=== PATIENT | female | born 1965 | race Caucasian/White ===

== ENCOUNTER 2018-09-21 14:50 | Emergency (ER) | payer BC ==
[2018-09-21] MEDS ORDERED: ASPIRIN 81 MG CHEWABLE TABLET PO ONE (14:56)
--- NOTE | 2018-09-21 14:57 | Emergency Department Record ---
History of Present Illness - General Chief Complaint: Chest Pain Stated Complaint: CHEST PAIN Time Seen by Provider: 09/21/18 14:53 Source: Patient, Family Mode of Arrival: Ambulatory Limitations: No limitations - History of Present Illness Initial Comments: 52 yo female presents with a pounding feeling in her chest with rapid heart rate over the last hour. [place] onset was [place]. She checked her HR and it was about 180. The rapid heart rate makes her feel short of breath. No CAD history. She has a history or asthma. Her asthma has been under control recently. She is a non smoker. No recent changes in her health. MD Complaint: Chest pain, Other (Rapid Heart rate) -: Hour(s) (1) Onset: Other Pain Location: Substernal Pain Radiation: RUE, LUE Severity: Moderate Quality: Heaviness Consistency: Constant Improves With: Nothing Worsens With: Nothing Context: Other Anginal Symptoms: Dyspnea Other Symptoms: Other Treatments Prior to Arrival: None - Related Data Home Medications Medication Instructions Recorded Confirmed Last Taken Albuterol Sulfate [Proair Hfa] 2 puff INH ASDIR 09/21/18 09/21/18 09/19/18 Allergies Allergy/AdvReac Type Severity Reaction Status Date / Time Penicillins Allergy PT UNSURE Verified 09/21/18 14:56 OF REACTION Review of Systems Constitutional: Denies: Chills, Fever, Weakness Eyes: Denies: Eye discharge ENT: Denies: Congestion, Throat pain Respiratory: Reports: Dyspnea, Wheezes (Hx of asthma). Denies: Cough, He moptysis, Stridor Cardiovascular: Reports: Chest pain (Pounding), Dyspnea on exertion, Palpitations. Denies: Edema, Syncope Endocrine: Denies: Fatigue, Polydipsia, Polyuria Gastrointestinal: Denies: Abdominal pain, Diarrhea, Nausea, Vomiting Genitourinary: Denies: Dysuria, Urgency Musculoskeletal: Denies: Arthralgia, Back pain, Myalgia Skin: Denies: Bruising, Change in color, Rash Neurological: Denies: Headache, Numbness, Weakness Psychiatric: Denies: Anxiety Hematological/Lymphatic: Denies: Easy bleeding, Easy bruising Physical Exam - General General Appearance: Alert, Oriented x3, Cooperative, No acute distress Limitations: No limitations - Head Head exam: Atraumatic, Normal inspection - Eye Eye exam: Normal appearance, PERRL. negative: Conjunctival injection, Scleral icterus - ENT ENT exam: Normal exam, Mucous membranes moist Ear exam: Normal external inspection Nasal Exam: Normal inspection Mouth exam: Normal external inspection - Neck Neck exam: Normal inspection - Respiratory Respiratory exam: Normal lung sounds bilaterally. negative: Accessory muscle use, Prolonged expiratory, Wheezes - Cardiovascular Cardiovascular Exam: Tachycardia. negative: Regular rate, Normal rhythm Peripheral Pulses: 2+: Radial (R), Radial (L) - GI/Abdominal GI/Abdominal exam: Soft. negative: Tenderness - Rectal Rectal exam: Deferred - exam: Deferred - Extremities Extremities exam: Normal inspection. negative: Pedal edema, Tenderness - Back Back exam: Denies: CVA tenderness (R), CVA tenderness (L) - Neurological Neurological exam: Alert, Oriented X3 - Psychiatric Psychiatric exam: Anxious - Skin Skin exam: Dry, Intact, Normal color, Warm Course - Reevaluation(s) Reevaluation #1: 09/21/18 14:57 EKG #1: 14:52 Rate: 176 Rhythm: SVT [place]: R Intervals: Qtc 488 ST segments: ST depression, probably rate related Prior: None 09/21/18 15:00 09/21/18 15:04 I had the patient perform a vagal maneuver She successfully converted the SVT to a NSR Repeat EKG ordered 09/21/18 15:05 EKG #2: 15:02 Rate: 74 Rhythm: sinus [place]: rightward Intervals: normal ST segments: normal Prior: #1 09/21/18 15:35 Patient remains NSR. 09/21/18 16:28 The labs were reviewed No acute changes on the CBC or CMP The Troponin is normal The patient remains in NSR. She does states that she is having chest tightness that comes and goes still. I recommend admission if that is the case. She is from [place] and requests transfer to [place] (37 miles) 09/21/18 16:35 PCP is at [facility] 09/21/18 16:39 The [place] Referral Line was called for transfer 09/21/18 16:45 Since the tightness seems to not be resolving 3rd EKG ordered CTA of chest ordered as well to rule out PE/other causes of tightness shortness of breath.. 09/21/18 16:56 EKG #3: Rate: 70 Rhythm: sinus [place]: normal to R Intervals: normal ST segments: normal Prior: #1 and #2 No dynamic changes on the EKG 09/21/18 17:32 The patient states now she has developed a headache in the last one hour. I discussed that she may need an anticoagulant at some point. This headache is new so I discussed HCT prior as well to ensure no acute pathology. She is in agreement. 09/21/18 18:05 The chief radiologic technologist informed by the IV will not function for the CTA. In light of this a D-dimer will be sent and additional attempts will be made for access adequate for CTA. 09/21/18 18:28 HCT is negative D-dimer is 0.48 09/21/18 18:40 Dr Ly of [facility] was updated on the results and unable to perform the CT but D-Dimer is negative He accepts transfer at this time and bed assignment will follow. Medical Decision Making - Lab Data Result diagrams: 09/21/18 15:20 09/21/18 15:20 Disposition Disposition: Transfer Clinical Impression: Supraventricular tachycardia Disposition: Acute Care Hospital Transfer Transfer To: [facility] Reason For Transfer: SVT CP. No cardiology at [facility] Accepting Physician: Kallie Time Discussed w/Accepting Physician: 17:25 Forms: Patient Portal Access Time of Disposition: 18:42 Quality - Quality Measures Quality Measures: N/A - Blood Pressure Screening Does Patient Have Any of the Following: No Blood Pressure Classification: Hypertensive Reading Systolic Measurement: 139 Diastolic Measurement: 109 Screening for High Blood Pressure: < Pre-Hypertensive BP, F/U Documented > [G8950] Pre-Hypertensive Follow-up Interventions: Referral to alternative/primary care provider.
[2018-09-21] MEDS ORDERED: ADENOSINE 6 MG/2 ML VIAL IVP ONE (14:59)
[2018-09-21 15:52] LABS: ABSOLUTE NEUTROPHIL COUNT 3.87; BASO % 0.6 % (0-6); EOS % 2.9 % (0-6); GRAN % 53.3 % (47-80); HEMATOCRIT 46.5 % (35.0-47.0); LYMPH % 34.8 % (16-45); MEAN CELL VOLUME 82.4 fl (81-97); MEAN CORPUSCULAR HEMOGLOBIN 26.5 pg (27-33); MEAN CORPUSCULAR HGB CONC 32.3 g/dl (32-36); MEAN PLATELET VOLUME 9.9 fl (7.4-10.4); MONO % 8.4 % (0-9); PLATELET COUNT 404 K/uL (130-400); RED BLOOD COUNT 5.64 M/uL (3.80-5.40); RED CELL DISTRIBUTION WIDTH 16.4 % (11.5-14.5); WHITE BLOOD COUNT W/O DIFF 7.3 K/uL (4.2-12.2)
[2018-09-21 16:07] LABS: PARTIAL THROMBOPLASTIN TIME 25.5 SECONDS (24.5-39.1); PROTHROMBIN TIME (PATIENT) 10.4 SECONDS (9.5-12.1)
[2018-09-21 16:08] LABS: BLOOD UREA NITROGEN 15 mg/dL (6-20); CREATININE 0.8 mg/dL (0.5-0.9); EST GLOMERULAR FILTRATION RATE > 60 mL/min
[2018-09-21 16:11] LABS: GLUCOSE,RANDOM 112 mg/dL (74-109)
[2018-09-21 16:13] LABS: ALB/GLOB RATIO 1.5 (1.1-1.8); ALBUMIN 4.8 g/dL (4.0-5.0); ALT/SGPT 11 U/L (<33); AST/SGOT 14 U/L (10.0-35.0)
[2018-09-21 16:14] LABS: ALKALINE PHOSPHATASE 108 U/L (35-104)
[2018-09-21 16:15] LABS: NTpro B-NATRIURETIC PEPTIDE 54.67 pg/mL (<125)
[2018-09-21] MEDS ORDERED: ACETAMINOPHEN 500 MG TABLET PO ONE (17:26)
--- NOTE | 2018-09-24 09:06 | CT SCAN REPORT ---
EXAM: CT SCAN OF THE BRAIN WITHOUT CONTRAST HISTORY: INCREASING FRONTAL HEADACHE. TACHYCARDIA. TECHNIQUE: Standard CT imaging of the brain was performed in the axial plane without contrast. Additional coronal and sagittal reformatted images were also performed. Comparison: None. FINDINGS: The ventricles and subarachnoid spaces are normal. There is no mass, mass effect, intracranial hemorrhage, visible acute infarct, or abnormal extraaxial fluid. The skull is intact. The orbits, sinuses and mastoids are unremarkable. IMPRESSION: NEGATIVE NONCONTRAST CT SCAN OF THE BRAIN. JOB NUMBER: [id number] MTDD
== END 2018-09-21 19:16 | disposition short-term general hospital (02) ==
LOC: ER 14:50
DX: I47.1 Supraventricular tachycardia (principal); R06.00 Dyspnea, unspecified; R51 Headache
CPT/HCPCS: 70450; 71275; 80053; 83880; 84484; 85025; 85379; 85610; 85730; 93005; 93010; 99285